=== PATIENT | male | born 1945 | race Caucasian/White ===

== ENCOUNTER 2020-04-07 17:57 | Emergency (ER) | payer BC, MEDICARE ==
[~2020-04-07] VITALS: Ht 175.3 cm; Wt 90.0 kg
[2020-04-07 18:09] VITALS: BP 135/79
== END 2020-04-07 18:48 | disposition home or self-care (01) ==
LOC: ER 17:58
DX: S50.862A Insect bite (nonvenomous) of left forearm, initial encounter (principal); E78.00 Pure hypercholesterolemia, unspecified; Z88.1 Allergy status to other antibiotic agents; W57.XXXA Bitten or stung by nonvenomous insect and other nonvenomous arthropods, initial encounter; Y93.89 Activity, other specified; Y92.89 Other specified places as the place of occurrence of the external cause; Y99.8 Other external cause status
CPT/HCPCS: 99282

== ENCOUNTER 2020-10-13 08:53 | Emergency (ER) | payer BC, MEDICARE ==
[~2020-10-13] VITALS: Ht 175.3 cm; Wt 86.4 kg
[2020-10-13 09:05] VITALS: BP 154/89
== END 2020-10-13 10:00 | disposition home or self-care (01) ==
LOC: ER 08:53
DX: J02.9 Acute pharyngitis, unspecified (principal); R05 Cough; R06.02 Shortness of breath; Z20.828 Contact with and (suspected) exposure to other viral communicable diseases; E78.00 Pure hypercholesterolemia, unspecified; Z88.1 Allergy status to other antibiotic agents
CPT/HCPCS: 36415; 99284

== ENCOUNTER 2022-12-07 11:08 | Emergency (ER) | payer BC ==
[~2022-12-07] VITALS: Ht 175.3 cm; Wt 88.6 kg
[2022-12-07 11:12] VITALS: BP 166/82
[2022-12-07] MEDS ORDERED: TETanus/Pertussis (Acell)/Diphther VAC/PF (Tdap-Adult) 0.5ml syringe IMVAC ONE (11:40)
[2022-12-07] MEDS ORDERED: bacitracin 15gm ointment TP ONE (11:40)
[2022-12-07] MEDS ORDERED: LIDOCAINE 2%/EPI 1:100,000 inj. Multi-dose 20 ML VIAL IJ ONE (11:40)
== END 2022-12-07 12:45 | disposition home or self-care (01) ==
LOC: ER 11:08
DX: S01.91XA Laceration without foreign body of unspecified part of head, initial encounter (principal); E78.00 Pure hypercholesterolemia, unspecified; M79.641 Pain in right hand; M25.531 Pain in right wrist; Z88.1 Allergy status to other antibiotic agents; Z79.899 Other long term (current) drug therapy; W18.39XA Other fall on same level, initial encounter; Y93.73 Activity, racquet and hand sports; Y92.89 Other specified places as the place of occurrence of the external cause; Y99.8 Other external cause status
CPT/HCPCS: 12001; 29125; 70450; 72125; 73130; 90471; 90715; 99284; 99285; A6449

== ENCOUNTER 2022-12-09 10:21 | Emergency (ER) | payer BC ==
[~2022-12-09] VITALS: Ht 175.3 cm; Wt 88.0 kg
[2022-12-09 10:39] VITALS: BP 139/75
[2022-12-09] MEDS ORDERED: CEPH250T PO (11:09)
== END 2022-12-09 11:28 | disposition home or self-care (01) ==
LOC: ER 10:21
DX: M70.21 Olecranon bursitis, right elbow (principal); L03.113 Cellulitis of right upper limb; E78.00 Pure hypercholesterolemia, unspecified; Z91.041 Radiographic dye allergy status; Y93.89 Activity, other specified
CPT/HCPCS: 73080; 99283; A6449

== ENCOUNTER 2022-12-15 09:30 | Emergency (ER) | payer BC ==
[~2022-12-15] VITALS: Ht 175.3 cm; Wt 97.5 kg
[~2022-12-15 09:30] MED LIST: CEPH250T PO
[2022-12-15 09:35] VITALS: BP 150/75
--- NOTE | 2022-12-15 10:07 | NUR ---
Six intact nicol removed. Patient denies pain during and after staple removal. No bleeding during or after stable removal.
== END 2022-12-15 10:10 | disposition home or self-care (01) ==
LOC: ER 09:31
DX: S01.81XD Laceration without foreign body of other part of head, subsequent encounter (principal); Z48.00 Encounter for change or removal of nonsurgical wound dressing; E78.00 Pure hypercholesterolemia, unspecified; Z88.1 Allergy status to other antibiotic agents; Z79.1 Long term (current) use of non-steroidal anti-inflammatories (NSAID); X58.XXXD Exposure to other specified factors, subsequent encounter
CPT/HCPCS: 99284; A6449